=== PATIENT | male | born 1975 | race Caucasian/White ===

== ENCOUNTER 2023-02-02 09:52 | Emergency (ER) | payer OTHER, SELFPAY ==
[2023-02-02 10:13] VITALS: BP 156/94; PULSE 103; RESP 18; TEMP 36.4; O2SAT 96
--- NOTE | 2023-02-02 10:35 | ED.SKABFB ---
HPI - Skin/Abscess/Foreign Bdy General Chief complaint: Skin/Abscess/Foreign Body Stated complaint: swollen rt middle finger Source: patient and RN notes reviewed History of Present Illness HPI narrative: 47 yo M presents to urgent care with complaints of pain, redness, and blisters to his right middle finger. Pt states he began having a deep pain in his right middle finger this past Thursday night and yesterday, the blisters were noticed. Pt states he also began having fevers and body aches yesterday. States he has had shingles in this exact spot before. Denies any vomiting or diarrhea but does report some nausea. Related Data Home Medications Medication Instructions Recorded Confirmed lisinopril 20 1 tablet PO DAILY 02/02/23 02/02/23 mg-hydrochlorothiazide 12.5 mg tablet Allergies Allergy/AdvReac Type Severity Reaction Status Date / Time No Known Allergies Allergy Verified 02/02/23 10:22 Review of Systems Review of Systems: CONSTITUTIONAL: fevers EYES: Denies visual changes, redness, or discharge. ENT: Denies otalgia and sore throat CARDIOVASCULAR: Denies chest pain, palpitations, or edema. RESPIRATORY: Denies cough or dyspnea. GASTROINTESTINAL: Denies abdominal pain, nausea, vomiting, or diarrhea. GENITOURINARY: Denies dysuria or hematuria. SKIN: rash and blisters to right middle finger with red streak on forearm MUSCULOSKELETAL: reports right finger, hand, and arm pain. generalized body aches NEUROLOGIC: Denies headache, numbness, or weakness. Pertinent positives per HPI. PMFSH Comments At the time of my signature, I reviewed and agree with the nursing past medical, surgical, social, and family history. There is no relevant family history pertinent to the patient complaint. Exam Narrative: GENERAL: This is a well-nourished, well-developed patient, in no apparent distress. HEAD: normocephalic, atraumatic. EYES: Sclera clear/white. Vision is grossly intact. EARS: External ears normal, auditory canals clear and without drainage. Hearing grossly intact. NOSE: External nose normal with no obvious nasal discharge, nares without redness, no rhinorrhea. CARDIOVASCULAR: Regular rate and rhythm without murmurs, gallops, or rubs. RESPIRATORY: Clear to auscultation. Breath sounds equal bilaterally. No wheezes, rales, or rhonchi. GASTROINTESTINAL: Abdomen soft, non-tender, nondistended. Bowel sounds are active. No hepato-splenomegaly, or palpable masses. No guarding. SKIN: erythremic right middle finger with 3 vesicular lesions to lateral aspect of finger. Red streaking noted to volar side of right forearm. NEURO: awake, alert, and oriented to person, place and time. There were no obvious focal neurologic abnormalities. EXTREMITIES: No clubbing, cyanosis, or edema. MIldly edematous right middle finger. BACK: Nontender without deformity or crepitus. No flank tenderness. Course Course Level of Care: Express Care Visit Vital Signs Vital signs: Vital Signs Temperature 97.6 F 02/02/23 10:13 Pulse Rate 103 H 02/02/23 10:13 Respiratory Rate 18 02/02/23 10:13 Blood Pressure 156/94 H 02/02/23 10:13 Pulse Oximetry 96 02/02/23 10:13 Oxygen Delivery Room Air 02/02/23 10:13 Temperature 97.6 F 02/02/23 10:13 Pulse Rate 103 H 02/02/23 10:13 Respiratory Rate 18 02/02/23 10:13 Blood Pressure 156/94 H 02/02/23 10:13 Pulse Oximetry 96 02/02/23 10:13 Oxygen Delivery Room Air 02/02/23 10:16 Reviewed MDM - Skin/Abscess/Foreign Bdy MDM Narrative Medical decision making narrative: Discussed reasons it is recommended he be evaluated in the ER and pt agreed to go to [place] [facility] by private vehicle. Pt is stable. VSS. Report called to Dr. Zamora at [place] [facility] who accepted pt. Differential Diagnosis Differential diagnosis: Likely herpes zoster, cellulitis and other (sepsis) Critical Care Time Critical Care Time Critical Care Time: No Discharge Plan Discharge
== END 2023-02-02 10:45 | disposition short-term general hospital (02) ==
PROVIDERS: Emergency Provider Nurse Practitioner Family
DX: R21 Rash and other nonspecific skin eruption (principal); Z79.899 Other long term (current) drug therapy
CPT/HCPCS: 99212; G0463

== ENCOUNTER 2023-02-02 10:58 | Emergency (ER) | payer OTHER, SELFPAY ==
[2023-02-02 11:10] VITALS: BP 201/104; PULSE 98; RESP 17; TEMP 37.2; O2SAT 97
[2023-02-02] MEDS: ceFAZolin 1 GM/NS 50 ML 1 GM/50 ML BAG IVPB (15:26)
[2023-02-02] MEDS: valACYclovir HCL 500 MG TABLET 1000 MG PO (15:34)
--- NOTE | 2023-02-02 15:44 | ED.GENADULT ---
HPI - General Adult General Chief complaint: Wound/Laceration Stated complaint: wound to right hand Time Seen by Provider: 02/02/23 13:09 History of Present Illness HPI narrative: 47-year-old male presented ED for evaluation for redness and swelling to his right middle finger. Patient noticed on Thursday that he had some pain to the medial aspect of the right middle finger and on Thursday he noticed some increased redness with some blisters. Patient did have a low-grade fever on Thursday. Patient presented to primary care for evaluation today and was referred to the emergency department. 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 Related Data Home Medications Medication Instructions Recorded Confirmed lisinopril 20 1 tablet PO DAILY 02/02/23 02/02/23 mg-hydrochlorothiazide 12.5 mg tablet Allergies Allergy/AdvReac Type Severity Reaction Status Date / Time No Known Allergies Allergy Verified 02/02/23 10:22 Review of Systems Review of Systems: All systems reviewed & are unremarkable except as noted in HPI and below Exam Narrative: APPEARANCE: Well appearing, no pain, no distress, well-nourished. HEAD: normocephalic, atraumatic. EYES: PERRLA/EOMI, conjunctivae clear. NOSE: Normal no drainage EARS:TMS clear with good light reflex. THROAT: Pharynx clear, no exudate. NECK: Supple. No adenopathy, no masses. RESPIRATORY: Airway patent, respirations nonlabored. Clear to auscultation bilaterally, no rales, rhonchi, wheezing. CARDIOVASCULAR: Regular rate and rhythm without murmurs rubs or gallops. ABDOMINAL: Soft, nontender, nondistended, normal bowel sounds MUSCULOSKELETAL: Erythema to proximal right middle finger with erythema tracking up the forearm. NEURO: Alert. Cranial nerves II through XII intact. Good gait. Good coordination SKIN: Warm, dry. Normal Color Course Course Emergency Course: 47 male presented ED for evaluation of redness of right middle finger. Some blisters to the medial aspect of right middle proximal finger with erythema tracking up the forearm. Patient has almost normal range of motion of the finger, no concern for tenosynovitis at this time. 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 patient is also being covered for herpetic christie and viral Vital Signs Vital signs: Vital Signs Temperature 98.9 F 02/02/23 11:10 Pulse Rate 98 02/02/23 11:10 Respiratory Rate 17 02/02/23 11:10 Blood Pressure 201/104 H 02/02/23 11:10 Pulse Oximetry 97 02/02/23 11:10 Oxygen Delivery Room Air 02/02/23 11:10 Temperature 98.9 F 02/02/23 11:10 Pulse Rate 98 02/02/23 11:10 Respiratory Rate 17 02/02/23 11:10 Blood Pressure 201/104 H 02/02/23 11:10 Pulse Oximetry 97 02/02/23 11:10 Oxygen Delivery Room Air 02/02/23 11:10 Medical Decision Making Differential Diagnosis Differential Diagnosis: Herpetic christie, cellulitis Vital Signs Vital Signs: Vital Signs Temperature 98.9 F 02/02/23 11:10 Pulse Rate 98 02/02/23 11:10 Respiratory Rate 17 02/02/23 11:10 Blood Pressure 201/104 H 02/02/23 11:10 Pulse Oximetry 97 02/02/23 11:10 Oxygen Delivery Room Air 02/02/23 11:10 Temperature 98.9 F 02/02/23 11:10 Pulse Rate 98 02/02/23 11:10 Respiratory Rate 17 02/02/23 11:10 Blood Pressure 201/104 H 02/02/23 11:10 Pulse Oximetry 97 02/02/23 11:10 Oxygen Delivery Room Air 02/02/23 11:10 Discharge Plan Discharge Clinical Impression: Rash, vesicular, Cellulitis Patient Disposition: Home, Self-Care Condition: Stable Instructions: Antibiotic Form, Cellulitis (ED) Additional Instructions: Antibiotic as directed until completed. Valacyclovir as directed until completed. Have close follow-up with your primary care physician. Prescriptions: New valacyclovir 1 gram tablet
== END 2023-02-02 16:21 | disposition home or self-care (01) ==
PROVIDERS: Emergency Provider Emergency Medicine
DX: R21 Rash and other nonspecific skin eruption (principal); L03.011 Cellulitis of right finger
CPT/HCPCS: 96374; 99284; A9270; J0690